=== PATIENT | male | born 1970 | race Caucasian/White ===

== ENCOUNTER 2016-12-19 01:21 | Emergency (ER) | payer SELFPAY ==
[2016-12-19 01:25] VITALS: BP 138/80
[2016-12-19] MEDS ORDERED: Albuterol/Ipratropium NEB.SOL* Albuterol 2.5 MG/Ipratropium 0.5 MG 3 ML INH ONE ×2 (01:59→02:57)
--- NOTE | 2016-12-19 02:14 | ED ---
HPI Cardiac - HPI Summary HPI Summary: Pt here w/ difficulty breathing, coughing. Has had a URI for a few months now. Cough worsening. Productive with green stuff. When asked if he has asthma or COPD, he reports his PCP told him he may have asthma - he has had breathing tx' s in the past but he does not use breathing tx's nor oxygen at home. Smokes marijuana daily - no cigarettes. Admits he's stubborn and waited to get checked out. 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 - History of Current Complaint Chief Complaint: EDUpperRespComplaint Stated Complaint: DIFF BREATHING Time Seen by Provider: 12/19/16 02:11 Hx Obtained From: Patient, Family/Deputy Probation Officer - female friend Pain Intensity: 0 - Allergy/Home Medications Allergies/Adverse Reactions: Allergies Allergy/AdvReac Type Severity Reaction Status Date / Time Poison Lillie Extract/Poison Allergy Intermediate Unknown Verified 12/19/16 01:28 [place] Extra Reaction [From Poison Lillie/[place] Extract] Details Sulfa Antibiotics Allergy Mild Rash Verified 12/19/16 01:28 PMH/Surg Hx/FS Hx/Imm Hx Previously Healthy: Yes Respiratory History: Reports: Hx Asthma - probable Denies: Hx Chronic Obstructive Pulmonary Disease (COPD) Infectious Disease History: No Infectious Disease History: Denies: Traveled Outside the [place] in Last 30 Days - Social History Lives: Alone Alcohol Use: Rare Substance Use Type: Reports: Marijuana - daily Hx Tobacco Use: No Smoking Status (MU): Never Smoked Tobacco Review of Systems Negative: Fever, Chills Negative: Sore Throat, Ear Ache, Nasal Discharge Negative: Chest Pain, Other - edema Positive: Shortness Of Breath, Cough Negative: Abdominal Pain, Vomiting, Diarrhea, Nausea Positive: no symptoms reported Musculoskeletal: Negative Skin: Negative Negative: Rash Neurological: Negative Psychological: Normal All Other Systems Reviewed And Are Negative: Yes Physical Exam Triage Information Reviewed: Yes Vital Signs On Initial Exam: Initial Vitals Temp Pulse Resp BP Pulse Ox 98.6 F 101 16 138/80 97 12/19/16 01:22 12/19/16 01:22 12/19/16 01:22 12/19/16 01:22 12/19/16 01:22 Vital Signs Reviewed: Yes Appearance: Positive: Ill-Appearing - in moderate to severe respiratory distress , Thin Skin: Positive: Warm, Dry Head/Face: Positive: Normal Head/Face Inspection Eyes: Positive: Other: - sclera injected. Negative: Discharge ENT: Positive: Hearing grossly normal, Pharynx normal, Nasal congestion, TMs normal. Negative: Nasal drainage Neck: Positive: Supple, Nontender Respiratory/Lung Sounds: Positive: Unable to speak in full sentences - coughing when tries to speak, Other - distant breath sounds w/ wheezing. Negative: Subcutaneous Emphysema, Stridor Cardiovascular: Positive: Normal, RRR, Pulses are Symmetrical in both Upper and Lower Extremities, S1, S2. Negative: Murmur, Rub Abdomen Description: Positive: Nontender, Soft Bowel Sounds: Positive: Present Musculoskeletal: Positive: Normal, Strength/ROM Intact Neurological: Positive: Normal, Sensory/Motor Intact, Alert, Oriented to Person Place, Time, CN Intact II-III Psychiatric: Positive: Normal Diagnostics - Vital Signs Vital Signs Temp Pulse Resp BP Pulse Ox 12/19/16 01:25 98.6 F 101 16 138/80 97 12/19/16 01:22 98.6 F 101 16 138/80 97 - Laboratory Lab Statement: Any lab studies that have been ordered have been reviewed, and results considered in the medical decision making process. Re-Evaluation - Re-Evaluation First Eval Change: Improved - breathing easier - coughing less - can complete full sentence without coughing - breath sounds more clear w/ expiratory wheeze only - no crackles Second Eval Change: Worse - When checking on pt to ask about pharmacy, it is observed that his pulse ox is in 80's again on RA - he was resting w/ pulse oximeter correctly in place. Reports tightness is creeping back - will repeat duoneb and order solumedrol Disposition - Course Course Of Treatment: Pt presents w/ moderate respiratory distress. Chest tight and pusle ox 86% on RA - improved to 90% on 3L - duoneb ordered and pt is 95% on 2L. Road tested around entire emergency department and pulse ox 93% at the lowest. Upon checking with pt about his pharmacy of choice, observed his pulse ox was in 80's on room air. He was resting and states "it just feels good not to have to work to breath so much". Replaced O2 via NC and sat went up to 94%. Will provide a 2nd round of duoneb tx and solumedrol IM. Signed out to Dr. Ridley at 3:00. - Diagnoses Provider Diagnoses: Dyspnea - Physician Notifications Discussed Care Of Patient With: Dr. Ridley Discharge - Discharge Plan Condition: Fair Disposition: OTHER Discharge Disposition Comment: Signed out to Dr. Ridley at 3:17am
[2016-12-19] MEDS ORDERED: methylPREDNISolone SOD SUCC* 125 MG 2 ML VIAL IM ONE (02:58)
--- NOTE | 2016-12-19 07:49 | RAD ---
HISTORY: Cough COMPARISONS: None VIEWS: 2: Frontal dual-energy and lateral views of the chest. FINDINGS: CARDIOMEDIASTINAL SILHOUETTE: The cardiomediastinal silhouette is normal. NORBERT: The norbert are normal. PLEURA: The costophrenic angles are sharp. No pleural abnormalities are noted. LUNG PARENCHYMA: There is hyperinflation with flattening of the diaphragm and expansion of the AP diameter of the chest. There is confluent alveolar opacification in the right lower lung near the pericardial phrenic angle. ABDOMEN: The upper abdomen is clear. There is no subphrenic gas. BONES AND SOFT TISSUES: No bone or soft tissue abnormalities are noted. OTHER: None. IMPRESSION: 1. HYPERINFLATION WHICH CAN BE SEEN WITH REACTIVE AIRWAY DISEASE OR COPD. 2. PATCHY AIRSPACE DISEASE OF THE RIGHT LOWER LUNG. RECOMMEND FOLLOW-UP UNTIL RESOLUTION TO EXCLUDE UNDERLYING PULMONARY PARENCHYMAL PATHOLOGY.
== END 2016-12-19 06:05 | disposition home or self-care (01) ==
LOC: ED 01:21
DX: R06.00 Dyspnea, unspecified (principal); R05 Cough; R06.02 Shortness of breath
CPT/HCPCS: 71020; 94640; 96375; 99282; A9270-GY; J2930

== ENCOUNTER 2017-01-11 12:09 | Emergency (ER) | payer MEDICAID ==
[2017-01-11] MEDS ORDERED: Albuterol/Ipratropium NEB.SOL* Albuterol 2.5 MG/Ipratropium 0.5 MG 3 ML INH ONE (12:31)
[2017-01-11] MEDS ORDERED: Albuterol/Ipratropium NEB.SOL* Albuterol 2.5 MG/Ipratropium 0.5 MG 3 ML ONE ×2 (12:33)
[2017-01-11] MEDS ORDERED: methylPREDNISolone SOD SUCC* 125 MG 2 ML VIAL IV ONE ×2 (12:34)
[2017-01-11] MEDS ORDERED: NS 0.9% 1000 ML* 2,000 ML IV ONE (12:34)
[2017-01-11] MEDS: NS 0.9% 1000 ML* 2,000 ML IV ONE (12:43)
[2017-01-11 12:54] LABS: Hematocrit 47 % (42-52); Hemoglobin 15.4 g/dl (14.0-18.0); Mean Corpuscular HGB Conc 33 g/dl (31-36); Mean Corpuscular Hemoglobin 28 pg (27-31); Mean Corpuscular Volume 86 fL (80-94); Mean Platelet Volume 8 um3 (7.4-10.4); Red Blood Count 5.45 10^6/ul (4.0-5.4); Red Cell Distribution Width 14 % (10.5-15); White Blood Count 12.7 10^3/ul (3.5-10.8)
[2017-01-11 13:03] LABS: Comments Flag Yes
[2017-01-11 13:04] LABS: Add Diff/Slide Review? Slide Review Added
[2017-01-11 13:06] LABS: Albumin 4.1 g/dL (3.2-5.2); BUN/Creatinine Ratio 13.3 (8-20); C Reactive Protein 62.86 mg/L (< 5.00); Calcium 9.8 mg/dL (8.6-10.3); EGFR African American 128.8 (>60); EGFR Non-African American 100.2 (>60); Globulin 3.5 g/dL (2-4); Potassium 4.3 mmol/L (3.5-5.0); Total Bilirubin 1.6 mg/dL (0.2-1.0); Total Protein 7.6 g/dL (6.4-8.9)
[2017-01-11 13:16] LABS: Troponin I 0.04 ng/mL (<0.04)
--- NOTE | 2017-01-11 13:34 | RAD ---
HISTORY: Shortness of breath, cough, wheezing COMPARISONS: None VIEWS: 2: Frontal and lateral views of the chest. FINDINGS: CARDIOMEDIASTINAL SILHOUETTE: The cardiomediastinal silhouette is normal. NORBERT: The norbert are normal. PLEURA: The costophrenic angles are sharp. No pleural abnormalities are noted. LUNG PARENCHYMA: There is hyperinflation with flattening of the diaphragm and expansion of the AP diameter of the chest. ABDOMEN: The upper abdomen is clear. There is no subphrenic gas. BONES AND SOFT TISSUES: No bone or soft tissue abnormalities are noted. OTHER: None. IMPRESSION: HYPERINFLATION WHICH CAN BE SEEN WITH COPD OR REACTIVE AIRWAY DISEASE. NO ACTIVE CARDIOPULMONARY DISEASE.
[2017-01-11 15:02] VITALS: BP 121/68
--- NOTE | 2017-01-11 17:06 | ED ---
Shelly Shafer Auryana, scribed for Cleveland Coughlin MD on 01/11/17 at 1233 . Respiratory - HPI Summary HPI Summary: 46 year old male presents with SOB starting yesterday worse since this morning. He also has wheezing and chest tightness. He denies any fever, chills, rhinorrhea, sore throat, CP, and edema/calf pain. Patient was seen a few weeks ago and was given an inhaler and prednisone (5 day course) with improvement. PMHx asthma (not diagnosed but does have an inhaler) and seasonal allergies. He denies any PMHx of HTN and DM. He is a former smoker. He states that he does work outside often. - History of Current Complaint Chief Complaint: EDAsthma Stated Complaint: ASTHMA ATTACK Time Seen by Provider: 01/11/17 12:28 Hx Obtained From: Patient Onset/Duration: Gradual Onset, Lasting Days - 1, Still Present, Worse Since - THIS MORING Initial Severity: Mild Current Severity: Moderate Pain Intensity: 0 Character: Wheezing, Dyspnea at Rest Associated Signs and Symptoms: SOB, Wheezing Related History: Similar Episode/Dx as - PREVIOUS EPISODE - SEE HPI - Allergy/Home Medications Allergies/Adverse Reactions: Allergies Allergy/AdvReac Type Severity Reaction Status Date / Time Poison Lillie Extract/Poison Allergy Intermediate Unknown Verified 12/19/16 01:28 [place] Extra Reaction [From Poison Lillie/[place] Extract] Details Sulfa Antibiotics Allergy Mild Rash Verified 12/19/16 01:28 PMH/Surg Hx/FS Hx/Imm Hx Respiratory History: Reports: Hx Asthma - probable Denies: Hx Chronic Obstructive Pulmonary Disease (COPD) Infectious Disease History: No Infectious Disease History: Denies: Traveled Outside the [place] in Last 30 Days - Family History Known Family History: Positive: Other - asthma - Social History Occupation: Employed Full-time - self employed Lives: With Family Alcohol Use: Rare Substance Use Type: Reports: Marijuana - daily Hx Tobacco Use: No - FORMER Smoking Status (MU): Former Smoker Review of Systems Constitutional: Negative Negative: Fever, Chills Eyes: Negative ENT: Negative Positive: Other - chest tightness Positive: Shortness Of Breath, Other - wheezing Gastrointestinal: Negative Genitourinary: Negative Musculoskeletal: Negative Skin: Negative Neurological: Negative Psychological: Normal All Other Systems Reviewed And Are Negative: Yes Physical Exam - Summary Physical Exam Summary: The patient is well-nourished in mild to moderate acute distress. The skin is warm and dry and skin color reflects adequate perfusion. HEENT: The head is normocephalic and atraumatic. The pupils are equal and reactive. The conjunctivae are clear and without drainage. Nares are patent and without drainage. Mouth reveals moist mucous membranes and the throat is without erythema and exudate. The external ears are intact. The ear canals are patent and without drainage. The tympanic membranes are intact. Neck is supple with full range of motion and non-tender. There are no carotid bruits. There is no neck vein distension. Respiratory: Chest is non-tender. Diminished breath sounds throughout with wheezing and rhonchi. Mild respiratory distress. Intercostal retractions with inspiration Cardiovascular: Heart is regular rate and rhythm. There is no murmur or rub auscultated. There is no peripheral edema and pulses are symmetrical and equal. Abdomen: The abdomen is soft and non-tender. There are normal bowel sounds heard in all four quadrants and there is no organomegaly palpated. Musculoskeletal: There is no back pain noted. Extremities are non-tender with full range of motion. There is good capillary refill. There is no peripheral edema or calf tenderness elicited. Neurological: Patient is alert and oriented to person, place and time. The patient has symmetrical motor strength in all four extremities. Cranial nerves are grossly intact. Deep tendon reflexes are symmetrical and equal in all four extremities. Psychiatric: The patient has an appropriate affect and does not exhibit any anxiety or depression. Triage Information Reviewed: Yes Vital Signs On Initial Exam: Initial Vitals Temp Pulse Resp BP Pulse Ox 97.8 F 92 16 121/75 92 01/11/17 12:10 01/11/17 12:10 01/11/17 12:10 01/11/17 12:10 01/11/17 12:10 Vital Signs Reviewed: Yes Diagnostics - Vital Signs Vital Signs Temp Pulse Resp BP Pulse Ox 01/11/17 12:13 99.1 F 91 20 121/75 92 01/11/17 12:10 97.8 F 92 16 121/75 92 - Laboratory Lab Results: Lab Results 01/11/17 01/11/17 01/11/17 Range/Units 12:25 12:25 12:25 WBC 12.7 H (3.5-10.8) 10^3/ul RBC 5.45 H (4.0-5.4) 10^6/ul Hgb 15.4 (14.0-18.0) g/dl Hct 47 (42-52) % MCV 86 (80-94) fL MCH 28 (27-31) pg MCHC 33 (31-36) g/dl RDW 14 (10.5-15) % Plt Count 256 (150-450) 10^3/ul MPV 8 (7.4-10.4) um3 Neut % (Auto) 64.4 (38-83) % Lymph % (Auto) 10.5 L (25-47) % [place] % (Auto) 6.5 (1-9) % Eos % (Auto) 17.2 H (0-6) % Baso % (Auto) 1.4 (0-2) % Absolute Neuts (auto) 8.2 H (1.5-7.7) 10^3/ul Absolute Lymphs (auto) 1.3 (1.0-4.8) 10^3/ul Absolute Monos (auto) 0.8 (0-0.8) 10^3/ul Absolute Eos (auto) 2.2 H (0-0.6) 10^3/ul Absolute Basos (auto) 0.2 (0-0.2) 10^3/ul Absolute Nucleated RBC 0.02 10^3/ul Nucleated RBC % 0.2 Sodium 133 (133-145) mmol/L Potassium 4.3 (3.5-5.0) mmol/L Chloride 98 L (101-111) mmol/L Carbon Dioxide 27 (22-32) mmol/L Anion Gap 8 (2-11) mmol/L BUN 11 (6-24) mg/dL Creatinine 0.83 (0.67-1.17) mg/dL Est GFR ( Amer) 128.8 (>60) Est GFR (Non-Af Amer) 100.2 (>60) BUN/Creatinine Ratio 13.3 (8-20) Glucose 94 (70-100) mg/dL Lactic Acid 1.2 (0.5-2.0) mmol/L Calcium 9.8 (8.6-10.3) mg/dL Total Bilirubin 1.60 H (0.2-1.0) mg/dL AST 20 (13-39) U/L ALT 10 (7-52) U/L Alkaline Phosphatase 61 (34-104) U/L Troponin I 0.04 H* (<0.04) ng/mL C-Reactive Protein 62.86 H (< 5.00) mg/L B-Natriuretic Peptide ( - 100) pg/mL Total Protein 7.6 (6.4-8.9) g/dL Albumin 4.1 (3.2-5.2) g/dL Globulin 3.5 (2-4) g/dL Albumin/Globulin Ratio 1.2 (1-3) /01/23 Range/Units 12:25 WBC (3.5-10.8) 10^3/ul RBC (4.0-5.4) 10^6/ul Hgb (14.0-18.0) g/dl Hct (42-52) % MCV (80-94) fL MCH (27-31) pg MCHC (31-36) g/dl RDW (10.5-15) % Plt Count (150-450) 10^3/ul MPV (7.4-10.4) um3 Neut % (Auto) (38-83) % Lymph % (Auto) (25-47) % [place] % (Auto) (1-9) % Eos % (Auto) (0-6) % Baso % (Auto) (0-2) % Absolute Neuts (auto) (1.5-7.7) 10^3/ul Absolute Lymphs (auto) (1.0-4.8) 10^3/ul Absolute Monos (auto) (0-0.8) 10^3/ul Absolute Eos (auto) (0-0.6) 10^3/ul Absolute Basos (auto) (0-0.2) 10^3/ul Absolute Nucleated RBC 10^3/ul Nucleated RBC % Sodium (133-145) mmol/L Potassium (3.5-5.0) mmol/L Chloride (101-111) mmol/L Carbon Dioxide (22-32) mmol/L Anion Gap (2-11) mmol/L BUN (6-24) mg/dL Creatinine (0.67-1.17) mg/dL Est GFR ( Amer) (>60) Est GFR (Non-Af Amer) (>60) BUN/Creatinine Ratio (8-20) Glucose (70-100) mg/dL Lactic Acid (0.5-2.0) mmol/L Calcium (8.6-10.3) mg/dL Total Bilirubin (0.2-1.0) mg/dL AST (13-39) U/L ALT (7-52) U/L Alkaline Phosphatase (34-104) U/L Troponin I (<0.04) ng/mL C-Reactive Protein (< 5.00) mg/L B-Natriuretic Peptide 47 ( - 100) pg/mL Total Protein (6.4-8.9) g/dL Albumin (3.2-5.2) g/dL Globulin (2-4) g/dL Albumin/Globulin Ratio (1-3) Result Diagrams: 01/11/17 12:25 01/11/17 12:25 Lab Statement: Any lab studies that have been ordered have been reviewed, and results considered in the medical decision making process. - Radiology CXR Xray Interpretation: Positive (See Comments) - IMPRESSION: HYPERINFLATION WHICH CAN BE SEEN WITH COPD OR REACTIVE AIRWAY DISEASE. NO ACTIVE CARDIOPULMONARY DISEASE. Radiology Interpretation Completed By: Radiologist - EKG 12:39 EKG Interpretation: NSR, NML axis, no STEMI Re-Evaluation - Re-Evaluation First Eval Re-Evaluation Time: 14:25 - DICUSS LAB RESULTS, IMAGING, AND PLAN OF ACTION Comment: Patient states that he feels better and would like to go home. Rechecked - no chest pain and lungs: increased air movement but wheezes and rhonchi are still present. Disposition - Course Assessment/Plan: 46 year old male presents with SOB starting yesterday and worse this morning. He also has wheezing and chest tightness. He reports that he has an episode a few weeks ago- given albuterol solution for nebulizer, and prednisone- with improvement. Former smoker and states he works outside often. CXR, EKG, and Labs drawn. Slightly elevated WBC. EKG- NML. Rechecked - states improved, no CP, but still still wheezes and rhonchi. Offered admission and patient wishes to go home. Will discharge with diagnosis of asthmatic bronchitis , and prescribe albuterol solution for nebulizer, prednisone, and Azithromycin. - Differential Dx - Cardiopulmonary Differential Diagnoses - Cardiopulmonary: Asthma, Bronchitis, CAD, Lower Resp Infection - Diagnoses Provider Diagnoses: Asthmatic bronchitis - Critical Care Time Critical Care Time: 30-74 min - 30 minutes Discharge - Discharge Plan Condition: Stable Disposition: HOME Prescriptions: Albuterol 2.5MG/3ML (0.083%)* [Ventolin 2.5 MG/3 ML NEB.ALFREDITO*] 2.5 mg INH Q6H # 30 neb.alfredito Azithromycin TAB* [Zithromax TAB (Z-KELTON) 250 mg #6 tabs] 2 tab PO .TODAY, THEN 1 DAILY #1 [place] predniSONE TAB* [Deltasone TAB*] 60 mg PO DAILY #15 tab Patient Education Materials: Albuterol (By breathing), Prednisone (By mouth), Acute Bronchitis (ED), Azithromycin (By mouth) Referrals: Ch[place] Lerma MD [Primary Care Provider] - Additional Instructions: Please use albuterol in nebulizer ever 6 hours as needed. The documentation as recorded by the Shelly mendes Auryana accurately reflects the service I personally performed and the decisions made by , Cleveland Coughlin MD.
== END 2017-01-11 15:01 | disposition home or self-care (01) ==
LOC: ED 12:09
DX: J45.909 Unspecified asthma, uncomplicated (principal); Z87.891 Personal history of nicotine dependence
CPT/HCPCS: 36415; 71020; 80053; 83605; 83880; 84484; 85025; 86140; 93005; 96360; 96374; 99283; A9270-GY; J2930

== ENCOUNTER 2017-06-12 14:29 | Emergency (ER) | payer MEDICAID ==
[2017-06-12 15:23] VITALS: BP 105/80
[2017-06-12] MEDS ORDERED: methylPREDNISolone 125 MG* 2 ML VIAL IM ONE (15:33)
--- NOTE | 2017-06-12 15:36 | UC ---
Respiratory Complaint HPI - HPI Summary HPI Summary: 47M presents with COPD exacerbation. He states his COPD starting acting up three days ago. He states he need zpack, steriod and inhaler prescription He denies any chest pain. He uses inhaler every 4 hours. He has no SOB at rest. He denies any history of CHF. He denies any fever, sinus congestion, ear pain, or abdominal pain. He has had multiple copd exacerbation in past couple months. is trying to get into pulmonlogist. He states has productive cough and wheezing. - History of Current Complaint Chief Complaint: UCRespiratory Stated Complaint: COUGH ASTHMA Time Seen by Provider: 06/12/17 15:28 - Allergies/Home Medications Allergies/Adverse Reactions: Allergies Allergy/AdvReac Type Severity Reaction Status Date / Time Poison Lillie Extract/Poison Allergy Intermediate Unknown Verified 06/12/17 15:26 [place] Extra Reaction [From Poison Lillie/[place] Extract] Details Sulfa Antibiotics Allergy Mild Rash Verified 06/12/17 15:26 PMH/Surg Hx/FS Hx/Imm Hx Endocrine History: Other Other Endocrine History: no DM Respiratory History: COPD - Surgical History Surgical History: Yes Surgery Procedure, Year, and Place: APPY - Family History Known Family History: Positive: Other - asthma - Social History Alcohol Use: Daily Alcohol Amount: 6 pack beer Substance Use Type: Marijuana Substance Use Comment - Amount & Last Used: "pain killers" not prescribed Smoking Status (MU): Former Smoker Review of Systems Constitutional: Negative Respiratory: Shortness Of Breath, Cough Cardiovascular: Negative All Other Systems Reviewed And Are Negative: Yes Physical Exam Triage Information Reviewed: Yes Appearance: Well-Appearing Vital Signs: Initial Vital Signs Temp 98.4 F 06/12/17 15:18 Pulse 102 06/12/17 15:18 Resp 17 06/12/17 15:18 BP 105/80 06/12/17 15:18 Pulse Ox 95 06/12/17 15:18 Vital Signs Reviewed: Yes Eyes: Positive: Conjunctiva Clear ENT: Positive: Normal ENT inspection, Pharynx normal, TMs normal Neck: Positive: Supple, Nontender, No Lymphadenopathy Respiratory: Positive: Wheezing Cardiovascular: Positive: RRR Abdomen Description: Positive: Nontender, Soft Bowel Sounds: Positive: Present Musculoskeletal Exam: Normal Neurological Exam: Normal Psychological Exam: Normal Skin Exam: Normal UC Diagnostic Evaluation - Laboratory O2 Sat by Pulse Oximetry: 95 - Radiology Xray Interpretation: No Acute Changes Radiology Interpretation Completed By: Radiologist Respiratory Course/Dx - Course Course Of Treatment: 47M presents with COPD exacerbation. He states his COPD starting acting up three days ago. He states he need zpack, steriod and inhaler prescription He denies any chest pain. He uses inhaler every 4 hours. He has no SOB at rest. He denies any history of CHF. He denies any fever, sinus congestion, ear pain, or abdominal pain. He has had multiple copd exacerbation in past couple months. is trying to get into pulmonlogist. He states has productive cough and wheezing. on exam no visible distress. breathing regular. lungs wheezing present. chest xray normal. will treat with steriod, levaquin. patient understand and agrees with plan. - Differential Dx/Diagnosis Differential Diagnosis/HQI/PQRI: Bronchitis, Exacerbation Of COPD, Lower Resp Infection Provider Diagnoses: copd excerbation Discharge - Discharge Plan Condition: Good Disposition: HOME Prescriptions: Albuterol 2.5MG/3ML (0.083%)* [Ventolin 2.5 MG/3 ML NEB.ALFREDITO*] 2.5 mg INH Q6H # 30 neb.alfredito Albuterol HFA INHALER* [Ventolin HFA Inhaler*] 1 - 2 puff INH Q4H PRN #1 mdi PRN Reason: Cough Levofloxacin TAB* [Levaquin TAB*] 500 mg PO DAILY #14 tab predniSONE TAB* [Deltasone TAB*] 60 mg PO DAILY #15 tab Patient Education Materials: COPD (Chronic Obstructive Pulmonary Disease) (ED) Referrals: Ch[place] Lerma MD [Primary Care Provider] - Additional Instructions: Use inhaler up to two puffs every 4 hours for cough and wheezing Take steroid once a day for 5 days Take antibiotic once daily starting tomorrow for 14 days Take Tylenol or ibuprofen for pain every 6 hours Return to ED if develop severe shortness of breath, worsening chest pain, or any new or worsening symptoms
--- NOTE | 2017-06-12 16:07 | RAD ---
INDICATION: Cough. COMPARISON: Comparison is made with prior chest x-ray studies from December 19, 2016 and January 11, 2017. TECHNIQUE: Dual-energy PA and lateral views of the chest were obtained. FINDINGS: The heart is within normal limits in size. Mediastinal and hilar contours appear within normal limits. The lungs are mildly hyperinflated. There is mild prominence of the interstitial markings which is unchanged. No focal infiltrate or pleural effusion is seen. IMPRESSION: NO EVIDENCE FOR ACUTE FINDING.
== END 2017-06-12 16:27 | disposition home or self-care (01) ==
LOC: UCEAST 14:29
DX: J44.1 Chronic obstructive pulmonary disease with (acute) exacerbation (principal); Z88.2 Allergy status to sulfonamides; Z87.891 Personal history of nicotine dependence
CPT/HCPCS: 71020; 96372; 99212; G0463; J2930

== ENCOUNTER 2017-07-27 07:48 | Emergency (ER) | payer OTHER ==
[2017-07-27] MEDS ORDERED: Tetan/Diph/Pertus SYR(Tdap)* 0.5 ML SYR(BOOSTRIX) use SYR IM ONE (09:48)
--- NOTE | 2017-07-27 09:48 | RAD ---
INDICATION: Right face and neck pain after a trip and fall injury- face versus kitchen counter. + EtOH. COMPARISON: None A CT scan of the brain, maxillofacial bones and c-spine was performed without intravenous contrast enhancement. Contiguous axial sections were obtained from the lung apices through the vertex of the skull. BRAIN: The ventricles, cisterns and sulci are within normal limits. No significant focal abnormality or mass effect is seen. The bustos-white differentiation is adequately maintained. There is no evidence for intracranial hemorrhage. The calvarium is intact without radiographically apparent fracture. The mastoid air cells are appropriately aerated. FACIAL BONES: Bones: There is no displaced fracture or dislocation. The orbital rim is intact. The zygomatic arch is intact. The pterygoid plates are intact Orbits: The globes are round. The optic nerves are symmetric. The extraocular musculature is normal. There is no post septal or intraconal inflammatory change. There is no retrobulbar hematoma. Paranasal Sinuses: There is moderate mucosal thickening of the bilateral maxillary sinuses, ethmoid air cells and mild mucosal thickening of the frontal sinuses. Sphenoid sinuses are clear. C-SPINE: On the sagittal view images the vertebral bodies and bilateral facet joints are correctly aligned. The dens is intact and the atlantoaxial interval is not widened. No cervical spine fractures are identified. Mild degenerative change is noted at C5/C6 and C6/C7 where there is a very mild degree of marginal osteophyte formation. There is no prevertebral soft tissue swelling. There is no hyperdense material in the cervical canal to indicate hemorrhage. The visualized musculature and soft tissues are normal. There is no gross lymphadenopathy visualized. The visualized portion of the lung apices are clear. IMPRESSION: 1. No calvarial fracture or acute intracranial hemorrhage. 2. No facial bone fractures. 3. Mild degenerative changes without acute fracture or dislocation of the cervical spine.
--- NOTE | 2017-07-27 12:14 | ED ---
Head Injury - HPI Summary HPI Summary: Pt here w/ facial injury. Reports he tripped and fell last night, falling forward into edge of counter with his face. Has a laceration over the superior bridge of nose and into eyebrow. Bleeding controlled w/ pressure. Also has Rt sided neck pain. Denies LOC, JUNG, visual change, N/V, numbness, tingling, weakness and no other injuries attained. Initially reported he was drinking ETOH however upon reviewing ETOH blood work which is <10, he admits he used heroin last night. States he is not longer feeling the effects at this time. Offered additional resources, care for this issue - he respectfully declines. - History Of Current Complaint Chief Complaint: EDFacialInjury Stated Complaint: FALL/FACIAL INJURY Time Seen by Provider: 07/27/17 08:38 Hx Obtained From: Patient Pain Intensity: 3 - Allergies/Home Medications Allergies/Adverse Reactions: Allergies Allergy/AdvReac Type Severity Reaction Status Date / Time Poison Lillie Extract/Poison Allergy Intermediate Unknown Verified 06/12/17 15:26 [place] Extra Reaction [From Poison Lillie/[place] Extract] Details Sulfa Antibiotics Allergy Mild Rash Verified 06/12/17 15:26 PMH/Surg Hx/FS Hx/Imm Hx Previously Healthy: Yes Endocrine/Hematology History: Denies: Hx Anticoagulant Therapy, Hx Blood Disorders Respiratory History: Reports: Hx Asthma - probable Denies: Hx Chronic Obstructive Pulmonary Disease (COPD) Psychiatric History: Reports: Hx Substance Abuse - heroine - Surgical History Surgery Procedure, Year, and Place: APPY - Immunization History Date of Tetanus Vaccine: UTD Date of Influenza Vaccine: NO Infectious Disease History: No Infectious Disease History: Denies: Traveled Outside the [place] in Last 30 Days - Family History Known Family History: Positive: Other - asthma - Social History Occupation: Employed Full-time - [employer] Lives: With Family - brother Alcohol Use: Daily Alcohol Amount: 6 pack beer + Hx Substance Use: Yes Substance Use Type: Reports: Marijuana Substance Use Comment - Amount & Last Used: "pain killers" not prescribed; admits to heroin use last night (07/26/2017) Hx Tobacco Use: No - FORMER Smoking Status (MU): Former Smoker Review of Systems Positive: Fatigue - reports he's tired - didn't sleep much last night Eyes: Negative Negative: Photophobia, Blurred Vision, Diplopia ENT: Negative Negative: Epistaxis, Dental Pain, Sore Throat, Ear Ache, Nasal Discharge Cardiovascular: Negative Negative: Chest Pain Respiratory: Negative Negative: Shortness Of Breath Gastrointestinal: Negative Negative: Abdominal Pain, Vomiting, Nausea Positive: no symptoms reported Positive: Arthralgia Skin: Other - lac Neurological: Negative Negative: Headache, Weakness, Paresthesia, Numbness, Syncope, Slurred Speech Psychological: Normal All Other Systems Reviewed And Are Negative: Yes Physical Exam Triage Information Reviewed: Yes Vital Signs On Initial Exam: Initial Vitals Temp Pulse Resp BP Pulse Ox 98.5 F 86 19 103/72 95 07/27/17 07:55 07/27/17 07:55 07/27/17 07:55 07/27/17 07:55 07/27/17 07:55 Vital Signs Reviewed: Yes Appearance: Positive: No Pain Distress, Well-Nourished Skin: Positive: Warm - linear lac over superior most nasal bridge and into Lt eyebrow - oozing blood w/ scabbing along edges Head/Face: Positive: Other - no battlesign, no racoon eyes, no step off Eyes: Positive: Normal, EOMI, MIKE, Conjunctiva Clear ENT: Positive: Normal ENT inspection, Hearing grossly normal, Pharynx normal, TMs normal - no hemotympanum Dental: Negative: Dental Fracture @ Neck: Positive: Supple, Tenderness @ - RT PARACERVICAL MM ARE TTP - OTHERWISE MOVING NECK WELL Respiratory/Lung Sounds: Positive: Clear to Auscultation, Breath Sounds Present. Negative: Subcutaneous Emphysema, Stridor, Tracheal Deviation Cardiovascular: Positive: Normal, RRR, Pulses are Symmetrical in both Upper and Lower Extremities Abdomen Description: Positive: Nontender, Soft Bowel Sounds: Positive: Present Musculoskeletal: Positive: Normal, Strength/ROM Intact Neurological: Positive: Sensory/Motor Intact, Alert, Oriented to Person Place, Time, CN Intact II-III, Other - subtle slurred speech - otherwise, A&O Psychiatric: Positive: Normal - calm, cooperative, pleasant - [place] Coma Scale Coma Scale Total: 15 Procedures - Laceration/Wound Repair 1 Location: face - 1.5cm lac over superior nasal bridge/Lt medial eyebrow Description: Irregular - linear w/ irregular flap at medial border Anesthesia: Local, [place] Length, Depth and Shape: 1.5cm x 4mm Betadine Prep?: No Irrigated w/ Saline (ccs): 250 - sterile water and hibaclens Laceration/Wound Explored: clean Closure: Single Layer Suture Type: Prolene - 6-0 Number of Sutures: 6 Layer Closure?: No Sterile Dressing Applied?: Yes - triple anbx ointment - hemodynamically stable - pt tolerated well Diagnostics - Vital Signs Vital Signs Temp Pulse Resp BP Pulse Ox 07/27/17 12:00 62 118/71 95 07/27/17 11:30 70 123/73 99 07/27/17 11:00 61 94/56 98 07/27/17 10:30 61 94/62 94 07/27/17 10:00 74 95/58 91 07/27/17 09:32 73 97/65 93 07/27/17 09:00 74 99/58 93 07/27/17 08:30 85 98/66 93 07/27/17 08:00 87 108/62 94 07/27/17 07:57 92 94 07/27/17 07:55 98.5 F 86 19 103/72 95 - Laboratory Lab Results: Lab Results 07/27/17 Range/Units 08:34 Serum Alcohol < 10 (<10) mg/dL Diagnostic Studies Comment: CT BRAIN/MAXILLOFACIAL/CERVICAL: no acute findings per radiology report Lab Statement: Any lab studies that have been ordered have been reviewed, and results considered in the medical decision making process. Re-Evaluation - Re-Evaluation First Eval Change: Improved - lac pain improved/tolerated cleaning s/p lidocaine Head Injury Course/Dx Course Of Treatment: Pt presents w/ fall resulting in head injury, facial lac and Rt side neck pain. It was discussed that he was possibly still intoxicated from drinking ETOH last night however after an ETOH draw, he is < 10 w/ subtlely slurred speech. He eventually admitted to use of heroin last night. Declines resources for this issue. He is A&O otherwise and ambulating well, appears coordinated. Discussed wound care and f/u for wound, NAVEED injuries and danger s/sx of infection as well as neurological sx - pt agrees w/ plan. - Diagnoses Provider Diagnoses: Head injury, Facial laceration, Cervical strain, acute Discharge - Discharge Plan Condition: Stable Disposition: HOME Patient Education Materials: Cervical Strain (ED), Care For Your Stitches (ED) , Head Injury (ED), Facial Laceration (ED) Referrals: Chico Lerma MD [Medical Doctor] - Additional Instructions: You have sustained a head injury today. The neurological effects may be masked by your substance use - continue to monitor for signs/symptoms of concussion. If you develop headache, change in vision, light sensitivity, vomiting, numbness , tingling, weakness, syncope, return to ED. Otherwise, rest, avoid stimulation (both physical and cognitive) and follow-up with PCP this week for recheck of symptoms. For your strain, you may try ice alternating with heat and gentle stretches. You may also try ibuprofen alternating with acetaminophen for pain. Follow-up with PCP if symptoms persist. Again, if you have numbness, tingling, weakness of your extremities, return to ED or follow-up with PCP. For your wound, gently wash daily with soap and water - rinse well and pat dry with clean cloth. Reapply triple antibiotic ointment. Follow-up with PCP in 5 days for wound check and suture removal. You may also apply ice for pain/ swelling. If you develop redness, swelling, purulent drainage, fever, chills, seek medical attention.
[2017-07-27 12:52] VITALS: BP 127/75
== END 2017-07-27 12:53 | disposition home or self-care (01) ==
LOC: ED 07:48
DX: S16.1XXA Strain of muscle, fascia and tendon at neck level, initial encounter (principal); S09.90XA Unspecified injury of head, initial encounter; S01.112A Laceration without foreign body of left eyelid and periocular area, initial encounter; S01.21XA Laceration without foreign body of nose, initial encounter; W19.XXXA Unspecified fall, initial encounter; Y93.9 Activity, unspecified; Y92.9 Unspecified place or not applicable
CPT/HCPCS: 12011; 36415; 70450; 70486; 72125; 80320; 90471; 90715; 96372; 99282; G0480

== ENCOUNTER 2017-08-17 00:52 | Inpatient (IN) | payer OTHER ==
[2017-08-17] MEDS ORDERED: NS 0.9% 1000 ML* 2,000 ML IV ONE ×5 (00:55→04:33)
[2017-08-17] MEDS ORDERED: KETAMINE HCL* 50 MG/ML 10 ML VIAL ONE (01:01)
[2017-08-17] MEDS ORDERED: Succinylcholine* 20 MG/ML 10 ML VIAL ONE (01:01)
[2017-08-17] MEDS ORDERED: Midazolam* 1 MG/ML 2 ML VIAL (2 MG) IV SLOW PU ONE ×3 (01:21→02:58)
[2017-08-17] MEDS ORDERED: Midazolam* 1 MG/ML 10 ML VIAL (10 MG) ONE (01:21)
[2017-08-17 01:35] LABS: Hematocrit 40 % (42-52); Hemoglobin 13.2 g/dl (14.0-18.0); Mean Corpuscular HGB Conc 33 g/dl (31-36); Mean Corpuscular Hemoglobin 28 pg (27-31); Mean Corpuscular Volume 84 fL (80-94); Mean Platelet Volume 8 um3 (7.4-10.4); Red Blood Count 4.79 10^6/ul (4.0-5.4); Red Cell Distribution Width 16 % (10.5-15); White Blood Count 15.4 10^3/ul (3.5-10.8)
[2017-08-17 01:43] LABS: Add Diff/Slide Review? Manual Diff Added; Comments Flag Yes
[2017-08-17 01:47] LABS: Albumin 2.7 g/dL (3.2-5.2); BUN/Creatinine Ratio 22.4 (8-20); Calcium 8.7 mg/dL (8.6-10.3); EGFR African American 38.2 (>60); EGFR Non-African American 29.7 (>60); Total Bilirubin 0.7 mg/dL (0.2-1.0); Total Protein 5.7 g/dL (6.4-8.9)
[2017-08-17 01:49] LABS: Troponin I 0.03 ng/mL (<0.04)
[2017-08-17] MEDS ORDERED: Midazolam* 1 MG/ML 2 ML VIAL (2 MG) IV ONE (01:50)
[2017-08-17] MEDS ORDERED: Levofloxacin 750 MG IVPREMIX(* 750 MG/150 ML BAG IVPB ONE (01:58)
[2017-08-17] MEDS ORDERED: Propofol* 500 MG/50 ML BTL IV SCH (02:00)
[2017-08-17 02:06] LABS: Potassium 4.5 mmol/L (3.5-5.0)
[2017-08-17] MEDS ORDERED: Albuterol 2.5 MG/3 ML NEB.SOL* (0.083%) INH PRN (02:25)
[2017-08-17] MEDS ORDERED: Acetaminophen TAB* 325 MG PO PRN (02:25)
[2017-08-17] MEDS ORDERED: Ondansetron INJ* 2 MG/ML VIAL IV PRN (02:26)
[2017-08-17] MEDS ORDERED: NS 0.9% 1000 ML* 1,000 ML IV SCH ×2 (02:30)
[2017-08-17] MEDS: Norepinephrine 16MCG/ML IVPRE* 4,000 MCG/250 ML BAG IV ONE ×2 (02:45→07:45)
[2017-08-17] MEDS ORDERED: Norepinephrine VIAL* 4 MG in NS 0.9% 250 ML* 246 ML IV SCH (03:00)
--- NOTE | 2017-08-17 03:17 | ED ---
Duane Shafer Stephanie, scribed for Rob Montana MD on 08/17/17 at 0151 . Respiratory - HPI Summary HPI Summary: Pt is a 47 y/o M BIBA to the ED after he called emergency services with c/o difficulty breathing. EMT reports that he was found at home under severe respiratory distress. Pt used a nebulizer at home with no improvement. - History of Current Complaint Chief Complaint: EDRespiratoryDistress Stated Complaint: DIFFCULTY BREATHING Hx Obtained From: EMS Onset/Duration: Still Present Pain Intensity: 0 - Allergy/Home Medications Allergies/Adverse Reactions: Allergies Allergy/AdvReac Type Severity Reaction Status Date / Time Poison Lillie Extract/Poison Allergy Intermediate Unknown Verified 06/12/17 15:26 [place] Extra Reaction [From Poison Lillie/[place] Extract] Details Sulfa Antibiotics Allergy Mild Rash Verified 06/12/17 15:26 PMH/Surg Hx/FS Hx/Imm Hx Previously Healthy: No Endocrine/Hematology History: Denies: Hx Anticoagulant Therapy, Hx Blood Disorders Respiratory History: Reports: Hx Asthma - probable, Hx Chronic Obstructive Pulmonary Disease (COPD) Opthamlomology History: Denies: Hx Legally Blind EENT History: Denies: Hx Deafness Psychiatric History: Reports: Hx Substance Abuse - heroine - Surgical History Surgery Procedure, Year, and Place: APPY - Immunization History Date of Tetanus Vaccine: UTD Date of Influenza Vaccine: NO Infectious Disease History: Unable to Obtain/Confirm Infectious Disease History: Denies: Traveled Outside the [place] in Last 30 Days - Family History Known Family History: Positive: Other - asthma - Social History Alcohol Use: Daily Alcohol Amount: 6 pack beer + Hx Substance Use: Yes Substance Use Type: Reports: Heroin, Other Substance Use Comment - Amount & Last Used: unknown Hx Tobacco Use: Yes - FORMER Smoking Status (MU): Former Smoker Review of Systems Negative: Fever Positive: Shortness Of Breath All Other Systems Reviewed And Are Negative: Yes Physical Exam - Summary Physical Exam Summary: Appearance: Unresponsive Skin: Warm, Dry, No rash Eyes: Normal, PERRL, EOMI, sclera anicteric ENT: Remnants of food in mouth upon intubation. Poor dentition. Neck: Supple, nontender Respiratory: Bilateral infiltrates. Severe respiratory distress with poor air movements. Bilateral rales and rhonchi. Cardiovascular: S1, S2, no murmur, no rub, no gallop Abdomen: Soft, nontender, no organomegaly Bowel sounds: Present Musculoskeletal: Strength/ROM Intact, no edema, pulses symmetrical, increasing lethargy. Neurological: Unresponsive, cranial nerves II-XII WNL, gait not tested, sensation intact to pin and light touch Psychiatric: Unresponsive Triage Information Reviewed: Yes Vital Signs On Initial Exam: Initial Vitals Temp Pulse Resp BP Pulse Ox 96.2 F 145 32 152/134 73 08/17/17 01:13 08/17/17 01:13 08/17/17 01:13 08/17/17 01:13 08/17/17 01:13 Vital Signs Reviewed: Yes Procedures - Central Line Central Line Lumen: triple Central Line Procedure: sterile drapes applied, sterile dressing applied Central Line Position: femoral (L) Anesthesia: Lidocaine cc's of anesthesia: 10 Complications: none Central Line Post Position: sutured Diagnostics - Vital Signs Vital Signs Temp Pulse Resp BP Pulse Ox 08/17/17 01:13 96.2 F 145 32 152/134 73 - Laboratory Lab Results: Lab Results 08/17/17 08/17/17 08/17/17 Range/Units 01:07 01:07 01:07 WBC 15.4 H (3.5-10.8) 10^3/ul RBC 4.79 (4.0-5.4) 10^6/ul Hgb 13.2 L (14.0-18.0) g/dl Hct 40 L (42-52) % MCV 84 (80-94) fL MCH 28 (27-31) pg MCHC 33 (31-36) g/dl RDW 16 H (10.5-15) % Plt Count 406 (150-450) 10^3/ul MPV 8 (7.4-10.4) um3 Absolute Neuts (auto) 13.1 H (1.5-7.7) 10^3/ul Absolute Lymphs (auto) 1.3 (1.0-4.8) 10^3/ul Absolute Monos (auto) 0.5 (0-0.8) 10^3/ul Absolute Eos (auto) 0.4 (0-0.6) 10^3/ul Absolute Basos (auto) 0 (0-0.2) 10^3/ul Absolute Nucleated RBC 0.02 10^3/ul Neutrophils % Pending Normal RBC Morphology Pending Sodium 131 L (133-145) mmol/L Potassium 4.5 (3.5-5.0) mmol/L Chloride 91 L (101-111) mmol/L Carbon Dioxide 19 L (22-32) mmol/L Anion Gap 21 H (2-11) mmol/L BUN 53 H (6-24) mg/dL Creatinine 2.37 H (0.67-1.17) mg/dL Est GFR ( Amer) 38.2 (>60) Est GFR (Non-Af Amer) 29.7 (>60) BUN/Creatinine Ratio 22.4 H (8-20) Glucose 104 H (70-100) mg/dL Lactic Acid 11.2 H* (0.5-2.0) mmol/L Calcium 8.7 (8.6-10.3) mg/dL Total Bilirubin 0.70 (0.2-1.0) mg/dL AST 31 (13-39) U/L ALT 10 (7-52) U/L Alkaline Phosphatase 39 (34-104) U/L Troponin I 0.03 (<0.04) ng/mL Total Protein 5.7 L (6.4-8.9) g/dL Albumin 2.7 L (3.2-5.2) g/dL Globulin 3.0 (2-4) g/dL Albumin/Globulin Ratio 0.9 L (1-3) Result Diagrams: 08/17/17 01:07 08/17/17 01:07 Lab Statement: Any lab studies that have been ordered have been reviewed, and results considered in the medical decision making process. - Radiology CXR Xray Interpretation: Positive (See Comments) - Bilateral fluffy infiltrates. Radiology Interpretation Completed By: ED Physician [facility] XRay Xray Interpretation: No Acute Changes Radiology Interpretation Completed By: ED Physician - Shows the femoral line is in good position. - EKG 01:38 EKG Rhythm: Sinus Tachycardia Ectopy: None Disposition - Course Course Of Treatment: Intubation performed after administration of succinyl choline and ketamine, 1 mg/kg of each. Using video laryngoscope, 9.0 mm tube was inserted successfully. Pt was hypotensive treated w/ iv saline. Tube position was checked by using CO2 detector. Patient will be admitted for treatment. - Diagnoses Provider Diagnoses: Aspiration pneumonia of both lungs Discharge - Discharge Plan Condition: Critical Disposition: ADMITTED TO [facility] The documentation as recorded by the Duane mendes Stephanie accurately reflects the service I personally performed and the decisions made by me, Rob Montana MD.
[2017-08-17] MEDS ORDERED: Propofol* 100 ML ONE (03:23)
[2017-08-17] MEDS ORDERED: Clindamycin 600 MG IVPREMIX(* 600 MG/50 ML SDV IV SCH (04:00)
[2017-08-17] MEDS ORDERED: Cisatracurium* 2 MG/ML MDV 5 ML ONE ×2 (04:19→04:33)
[2017-08-17] MEDS ORDERED: Midazolam* 1 MG/ML 2 ML VIAL (2 MG) ONE (04:27)
[2017-08-17] MEDS: Furosemide IV* 10 MG/ML VIAL (40 MG) ONE ×2 (04:30→05:10)
[2017-08-17 04:39] LABS: Urine Bacteria Absent (Absent); Urine Bilirubin Negative (Negative); Urine Glucose Negative (Negative); Urine Nitrite Negative (Negative)
[2017-08-17] MEDS ORDERED: Furosemide IV* 10 MG/ML VIAL (40 MG) ONE (05:00)
[2017-08-17] MEDS ORDERED: EPINEPHrine SYR 0.1 MG/ML* (1:10,000) SYRINGE ONE ×2 (05:30→05:33)
[2017-08-17] MEDS ORDERED: Norepinephrine 16MCG/ML IVPRE* (4 MG/250 ML) IV ONE ×2 (05:30→05:33)
[2017-08-17] MEDS ORDERED: Propranolol IV* 1 MG/ML 1 ML VIAL ONE (05:30)
[2017-08-17] MEDS ORDERED: Sodium Bicarbonate 8.4% IV* 50 ML VIAL ONE (05:30)
[2017-08-17] MEDS ORDERED: Sodium Bicarbonate 8.4%* 50 ML SYRINGE ONE (05:33)
[2017-08-17 06:01] LABS: Hematocrit 35 % (42-52); Mean Corpuscular HGB Conc 38 g/dl (31-36); Mean Corpuscular Hemoglobin 33 pg (27-31); Mean Corpuscular Volume 89 fL (80-94); Mean Platelet Volume 9 um3 (7.4-10.4); Red Blood Count 3.93 10^6/ul (4.0-5.4); Red Cell Distribution Width 17 % (10.5-15); White Blood Count 17.6 10^3/ul (3.5-10.8)
[2017-08-17 06:08] LABS: Comments Flag Yes
[2017-08-17 06:17] LABS: BUN/Creatinine Ratio 21.4 (8-20); Blood Urea Nitrogen 45 mg/dL (6-24); CO2 Carbon Dioxide 17 mmol/L (22-32); Calcium 6.6 mg/dL (8.6-10.3); Chloride 104 mmol/L (101-111); EGFR African American 43.9 (>60); EGFR Non-African American 34.2 (>60); Sodium 134 mmol/L (133-145)
[2017-08-17 06:44] LABS: Glucose 35 mg/dL (70-100); Troponin I 0.05 ng/mL (<0.04)
[2017-08-17 06:55] LABS: Anion Gap 13 mmol/L (2-11)
[2017-08-17 07:22] VITALS: BP 137/115
--- NOTE | 2017-08-17 08:47 | RAD ---
Indication: Found down. Respiratory distress. Emergent intubation. Comparison: June 12, 2017 chest radiograph. Technique: Supine AP 0114 hours Report: Tip of endotracheal tube 4.4 cm above the Trish. Extensive RIGHT greater than LEFT lung alveolar consolidation. Negative for volume loss. Trace fluid at the RIGHT minor fissure. Negative for cardiomegaly. Central pulmonary vasculature is largely obscured without compelling abnormality. IMPRESSION: Acceptable position of the ET tube. Severe RIGHT greater than LEFT alveolar consolidation new compared with the June 12, 2017 exam without volume loss most consistent with pneumonia.
--- NOTE | 2017-08-17 08:50 | RAD ---
Indication: Severe sepsis. Aspiration pneumonia. Heroin overdose. Line placement. Comparison: July 24, 2010 CT. Technique: Supine AP pelvis 0246 hours Report: Tip of LEFT common femoral level central line terminates at the level of the common iliac bifurcation. Urinary catheter with tip at level of the bladder. Negative for fracture. Unremarkable articular alignment in the AP projection. Unremarkable soft tissue contours. IMPRESSION: Tip of LEFT common femoral level central line terminates at the level of the common iliac bifurcation. Indeterminate if this represents an arterial or venous line based on radiograph.
--- NOTE | 2017-08-17 08:55 | RAD ---
Indication: Endotracheal tube placement. Severe sepsis, aspiration pneumonia, heroin overdose. COPD. Comparison: 0115 hours exam of the same date. Technique: Upright AP 0043 hours Report: Endotracheal tube tip 4.5 cm above the Trish. Interval worsening of RIGHT greater than LEFT alveolar consolidation compared with the earlier exam of the same date. Small bilateral pleural effusions. Negative for pneumothorax. Negative for cardiomegaly. The central pulmonary vasculature is largely obscured without gross abnormality. Negative for cephalization. IMPRESSION: 1. Acceptable position of the endotracheal tube. 2. Interval worsening of RIGHT greater than LEFT alveolar consolidation. Consider severe aspiration pneumonia as well as potential pulmonary hemorrhage.
[2017-08-17] MEDS ORDERED: Pantoprazole IV* 40 MG IV SCH (09:00)
[2017-08-17 09:11] LABS: Eosinophils % 4 % (0-6); Immature Granulocytes 15 % (0-9); Metamyelocytes % 4 % (0-2); Myelocytes % 5 % (0-1); Neutrophil % 44 % (38-83); Reactive Lymph % 1 % (0-6)
[2017-08-17 09:12] LABS: Add Path Review? YES; Polychromasia 1+; Toxic Granulation 2+
--- NOTE | 2017-08-17 13:45 | PN ---
Progress Note - Progress Note Date of Service: 08/17/17 Note: CRITICAL CARE MEDICINE Date: 08/17/17 Time: 1330 D/w Dr. Peng this early am regarding case, but clearly non-survivable and pt passed. Pt father came by this afternoon and he was updated on the dynamics of the case. Very polite and just wanted to have an understanding of what transpired. They were appreciative for the information Critical Care Time: No charge. Harley Kang, DO
--- NOTE | 2017-08-18 01:32 | HP ---
H&P (Free Text) History and Physical: Combined H&P/Discharge Summary PCP: none Date/Time: 08/17/2017 0145 CC: respiratory distress HPI: Mr Krishnamurthy is a 47YO male HX heroin abuse last seen at [facility] [place] [place] after a fall with facial injury 2nd IV heroin use. At this time, he is intubated & in critical condition yielding him unable to contribute to this history which is therefore obtained via ED staff, EMS report, and the available medical record. Reportedly he called 911 from his home where they found him in a tripod position in severe respiratory distress that failed to respond to 15L non- rebreather mask prompting conversion to CPAP en route. He converted to an ABC alert as he arrived to our facility and was brought immediately to ED 14 by EMS where rapid sequence intubation was performed by Dr Montana, ED. CXR showed a massive R>L infiltrate consistent with aspiration. While in ED he was quite hypotensive, receiving a total of 7L bolus. Norepinephrine GTT was started and Mr Smith initially stabilized satisfactorily from a cardiopulmonary standpoint. He was also found to have an CHRIS which early on I was optimistic was pre-renal and due to dehydration. However, after settling into the ICU it was realized he was nearly anuric despite the 7L and his respiratory status began to quickly decompensate, likely due to ATN as etiology of his acute renal failure. His pulmonary status failure accelerated and Nuvia Kang MD critical- care was consulted via phone. Per his advice, the vent was placed on APRV P-hi 35, T-hi 3s, and P-lo 0.4 while maximal effort was made to maintain his hemodynamics. Ultimately, between the aspiration and acute pulmonary edema his oxygenation could not be maintained resulting in a mounting lactic acidosis and cardiac failure despite high dose norepinephrine & epinephrine GTTs. Bicarbinate bolusing only provided brief and minimal improvement. He converted to repeat ABC alert at ~0530 and ongoing aggressive resuscitative efforts continued. For complete details, please review the ABC flow sheet. Code was called at 0616 and he was pronounced w/ asystole on the monitor. Family began to arrive very shortly thereafter, were appropriate and appreciative of our efforts. Questions were sought and answered to their satisfaction. PMedHx asthma Ambulatory Orders Nursing to reconcile. Albuterol 2.5MG/3ML (0.083%)* [Ventolin 2.5 MG/3 ML NEB.ALFREDITO*] 2.5 mg INH Q6H # 30 neb.alfredito 06/12/17 Albuterol HFA INHALER* [Ventolin HFA Inhaler*] 1 - 2 puff INH Q4H PRN #1 mdi 12/24 Levofloxacin TAB* [Levaquin TAB*] 500 mg PO DAILY #14 tab 06/12/17 predniSONE TAB* [Deltasone TAB*] 60 mg PO DAILY #15 tab 06/12/17 Allergies Poison Lillie Extract/Poison [place] Extra [From Poison Lillie/[place] Extract] Allergy ( Intermediate, Verified 06/12/17 15:26) Unknown Reaction Details Sulfa Antibiotics Allergy (Mild, Verified 06/12/17 15:26) Rash PSurgHx appendectomy SocHx: former smoker, ~6 beers/day, occasional marijuana, IV heroin; otherwise unknown; full code status FamHx: positive for asthma, otherwise unknown ROS: as above, otherwise reviewed and all were negative vitals: Vital Signs Temp 36.3 C 08/17/17 06:19 Pulse 148 08/17/17 06:11 Resp 0 08/17/17 06:00 BP 137/115 08/17/17 06:08 Pulse Ox 59 08/17/17 06:11 Intake & Output 08/17/17 08/17/17 08/18/17 11:59 23:59 11:59 Intake Total 7534 Output Total 215 Balance 7319 Weight 66.5 kg Intake: IV Fluids 6900 NS (0.9%) 6900 Medicated IV 634 CC - Cisatracurium 5 CC - Epinephrine 250 CC - Norepinephrine/ 321 Levophed CC - Propofol/Diprivan 58 Output: Vyas 215 Constitutional: NAD, normally developed, well-nourished white male HEENM: atraumatic; sclera/conjunctiva: anicteric/clear; PERRLA, hearing: unassessable; oropharynx: proteinaceous debris caking hard/soft pallet, dry Neck: soft tissue: no nuchal rigidity; thyroid: normal Pulmonary: markedly diminished bilaterally w/ L>R rhonchi and tubular breath sounds in the R axilla, poor aeration, positive accessory muscle use, positive percussion L lung field, unable to assess for fremitus CV: RR/RR, normal S1S2, no carotid bruit, no jugular venous distention, 2+ B DP/ PT, no edema Abdominal: soft, non-distended, non-tender, no rebound/guarding/rigidity, normoactive bowel sounds, no hepatosplenomegaly or masses, no costovertebral angle tenderness Musculoskeletal: general: grossly intact; gait: currently non-ambulatory Integumental: a < 2 day-old appearing injection site noted in the L anti- cubital fossa w/o s/s infection Psychiatric orientation: GCS 3 affect: obtunded mood: acquiescent eye contact: absent content: absent responses: absent insight: currently absent Testing: Laboratory Results - last 24 hr 08/17/17 08/17/17 08/17/17 01:07 01:07 01:07 WBC 15.4 H RBC 4.79 Hgb 13.2 L Hct 40 L MCV 84 MCH 28 MCHC 33 RDW 16 H Plt Count 406 MPV 8 Immature Gran % (Auto) 15 H Absolute Neuts (auto) 9.1 H Absolute Lymphs (auto) 3.7 Absolute Monos (auto) 2.0 H Absolute Eos (auto) 0.6 Absolute Basos (auto) 0 Absolute Nucleated RBC 0.02 Neutrophils % 44 Band Neutrophils % 6 Lymphocytes % 23 L Reactive Lymphs % 1 Monocytes % 13 Eosinophils % 4 Metamyelocytes % 4 H Myelocytes % 5 H Nucleated RBCs/100 WBC 1 H Toxic Granulation 2+ Normal RBC Morphology Not Reportable Polychromasia 1+ INR (Anticoag Therapy) APTT VBG pH VBG pCO2 VBG pO2 VBG HCO3 VBG O2 Saturation VBG Base Excess Sodium Potassium 4.5 Chloride Carbon Dioxide Anion Gap 21 H BUN Creatinine Est GFR ( Amer) Est GFR (Non-Af Amer) BUN/Creatinine Ratio Glucose Lactic Acid 11.2 H* Calcium Ionized Calcium Phosphorus AST 31 Troponin I Urine Color Urine Appearance Urine pH Ur Specific [place] Urine Protein Urine Ketones Urine Blood Urine Nitrate Urine Bilirubin Urine Urobilinogen Ur Leukocyte Esterase Urine WBC (Auto) Urine RBC (Auto) Ur Squamous Epith Cells Urine Bacteria Hyaline Casts Urine Glucose 08/17/17 08/17/17 08/17/17 01:07 04:10 05:45 WBC RBC Hgb Hct MCV MCH MCHC RDW Plt Count MPV Immature Gran % (Auto) Absolute Neuts (auto) Absolute Lymphs (auto) Absolute Monos (auto) Absolute Eos (auto) Absolute Basos (auto) Absolute Nucleated RBC Neutrophils % Band Neutrophils % Lymphocytes % Reactive Lymphs % Monocytes % Eosinophils % Metamyelocytes % Myelocytes % Nucleated RBCs/100 WBC Toxic Granulation Normal RBC Morphology Polychromasia INR (Anticoag Therapy) 1.41 H APTT 37.1 H VBG pH VBG pCO2 VBG pO2 VBG HCO3 VBG O2 Saturation VBG Base Excess Sodium 134 Potassium TNP Chloride 104 Carbon Dioxide 17 L Anion Gap 13 H BUN 45 H Creatinine 2.10 H Est GFR ( Amer) 43.9 Est GFR (Non-Af Amer) 34.2 BUN/Creatinine Ratio 21.4 H Glucose 35 L* Lactic Acid Calcium 6.6 L Ionized Calcium Phosphorus 7.0 H AST Troponin I 0.05 H* Urine Color Yellow Urine Appearance Cloudy Urine pH 5.0 Ur Specific [place] 1.012 Urine Protein 2+(100 mg/dl) H Urine Ketones Negative Urine Blood 2+ H Urine Nitrate Negative Urine Bilirubin Negative Urine Urobilinogen Negative Ur Leukocyte Esterase Negative Urine WBC (Auto) 3+(>20/hpf) H Urine RBC (Auto) 2+(6-10/hpf) H Ur Squamous Epith Cells Present H Urine Bacteria Absent Hyaline Casts Present H Urine Glucose Negative 08/17/17 08/17/17 05:45 05:45 WBC 17.6 H RBC 3.93 L Hgb 13.0 L Hct 35 L MCV 89 MCH 33 H MCHC 38 H RDW 17 H Plt Count 354 MPV 9 Immature Gran % (Auto) Absolute Neuts (auto) Absolute Lymphs (auto) Absolute Monos (auto) Absolute Eos (auto) Absolute Basos (auto) Absolute Nucleated RBC Neutrophils % Band Neutrophils % Lymphocytes % Reactive Lymphs % Monocytes % Eosinophils % Metamyelocytes % Myelocytes % Nucleated RBCs/100 WBC Toxic Granulation Normal RBC Morphology Polychromasia INR (Anticoag Therapy) APTT VBG pH Cancelled VBG pCO2 Cancelled VBG pO2 Cancelled VBG HCO3 Cancelled VBG O2 Saturation Cancelled VBG Base Excess Cancelled Sodium Potassium Chloride Carbon Dioxide Anion Gap BUN Creatinine Est GFR ( Amer) Est GFR (Non-Af Amer) BUN/Creatinine Ratio Glucose Lactic Acid Calcium Ionized Calcium 3.47 L Phosphorus AST Troponin I Urine Color Urine Appearance Urine pH Ur Specific [place] Urine Protein Urine Ketones Urine Blood Urine Nitrate Urine Bilirubin Urine Urobilinogen Ur Leukocyte Esterase Urine WBC (Auto) Urine RBC (Auto) Ur Squamous Epith Cells Urine Bacteria Hyaline Casts Urine Glucose ECG, personally reviewed: sinus tachycardia rate 133, no ischemia CXR, personally reviewed: massive R>L infilrate consistent with aspiration Impression: 47M presenting in fulminant acute respiratory failure 2nd aspiration pneumonia 2nd suspected heroin overdose with progression to pulmonary edema as a consequence of required emergency resuscitation and concurrent acute renal failure 2nd ATN DIAGNOSIS & PLAN Primary septic shock 2nd aspiration pneumonia : IVFs : IV ABX : blood & sputum CXs : pressors for support : supportive care acute hypoxic respiratory failure 2nd above : mechanical ventilation w/ high PEEP to try and achieve adequate oxygenation : frequent suctioning performed to clear airway as much as possible acute renal failure 2nd ATN : unable to mobilize resuscitative fluid despite high dose furosemide, only able to produce ~300cc Secondary HX heroin abuse HX asthma Admission Rational: inpatient ICU admission for hyper-critical patient in extremis DVTp: SCDs & heparin SQ Code Status: full HCP: unknown Critical Care Time: 3h 30m; From initial ABC in the ED at 0145 to pronunciation at 0616, I attended Mr Smith's bedside excepting brief excursions to for other patients totaling ~1h. During this time, evaluation, adding/titrating medications, adjusting ventilator settings, interpreting results and responses, and direct physician monitoring was performed.
[2017-08-18] MEDS ORDERED: Heparin VIAL(*) 5000 UNITS/ML VIAL (FIVE THOUSAND) SUBCUT SCH (06:00)
== END 2017-08-17 06:16 | disposition expired | DRG 720 ==
LOC: ED 00:52 → ICU 02:11
PROVIDERS: ADMIT Hospitalist; ATTEND Internal Medicine Critical Care Medicine
PROC: 06HN33Z Insertion of Infusion Device into Left Femoral Vein, Percutaneous Approach (ICD-10-PCS; principal; 2017-08-17)
PROC: 0BH17EZ Insertion of Endotracheal Airway into Trachea, Via Natural or Artificial Opening (ICD-10-PCS; 2017-08-17)
PROC: 5A1935Z Respiratory Ventilation, Less than 24 Consecutive Hours (ICD-10-PCS; 2017-08-17)
PROC: 3E043XZ Introduction of Vasopressor into Central Vein, Percutaneous Approach (ICD-10-PCS; 2017-08-17)
DX: A41.9 Sepsis, unspecified organism (principal); N17.0 Acute kidney failure with tubular necrosis; I46.9 Cardiac arrest, cause unspecified; R65.21 Severe sepsis with septic shock; J69.0 Pneumonitis due to inhalation of food and vomit; E87.2 Acidosis; I95.9 Hypotension, unspecified; J96.01 Acute respiratory failure with hypoxia; J81.0 Acute pulmonary edema; E86.0 Dehydration; J45.909 Unspecified asthma, uncomplicated; F12.90 Cannabis use, unspecified, uncomplicated; F11.10 Opioid abuse, uncomplicated; T40.1X1A Poisoning by heroin, accidental (unintentional), initial encounter; Z88.2 Allergy status to sulfonamides; Z91.048 Other nonmedicinal substance allergy status; Z87.891 Personal history of nicotine dependence; Z82.5 Family history of asthma and other chronic lower respiratory diseases; Z72.89 Other problems related to lifestyle; Y92.9 Unspecified place or not applicable
CPT/HCPCS: 36415; 71010; 72170; 80048; 80053; 81003; 81015; 82330; 83605; 84100; 84484; 85025; 85027; 85060; 85610; 85730; 87899; 93005; J0171; J0330; J1800; J1940; J2250; J2704